=== PATIENT | female | born 1935 | race Caucasian/White ===

== ENCOUNTER 2023-02-26 16:34 | Inpatient (IN) ==
[2023-02-26] MEDS ORDERED: ONDANSETRON 4 MG/2 ML VIAL IV PRN (18:50)
[2023-02-26] MEDS ORDERED: hydrALAZINE 20 MG/ML VIAL IV PRN (18:50)
[2023-02-26] MEDS ORDERED: HYDROmorphone 0.5 MG/0.5 ML SYRINGE IV PRN (18:50)
[2023-02-26] MEDS ORDERED: KETOROLAC 30 MG/ML VIAL IV PRN (18:50)
[2023-02-26] MEDS ORDERED: IPRATROPIUM/ALBUTEROL 3 ML AMPUL.NEB NEB PRN (18:50)
[2023-02-26] MEDS: oxyCODONE/APAP 5/325MG TABLET PO PRN (21:03)
[2023-02-26] MEDS: SENNOSIDES 1 TABLET PO SCH (21:03)
[2023-02-26] MEDS: DOCUSATE SODIUM 100 MG CAPSULE PO SCH (21:04)
[2023-02-26] MEDS: 0.9 % SODIUM CHLORIDE 10 ML SYRINGE IV SCH (22:10)
[2023-02-26] MEDS: 0.9 % SODIUM CHLORIDE 1,000 ML IV SCH (23:08)
[2023-02-27] MEDS: oxyCODONE/APAP 5/325MG TABLET PO PRN (03:04)
[2023-02-27] MEDS: 0.9 % SODIUM CHLORIDE 1,000 ML IV SCH ×3 (05:23→17:15)
[2023-02-27] MEDS: 0.9 % SODIUM CHLORIDE 10 ML SYRINGE IV SCH ×2 (05:23→14:00)
[2023-02-27 06:55] LABS: Basophils # (Auto) 0.05 K/mcL (0.00-0.30); Basophils % (Auto) 0.5 % (0.0-2.0); Eosinophils # (Auto) 0.04 K/mcL (0.00-0.70); Eosinophils % (Auto) 0.4 % (0.0-7.0); Hematocrit 38.5 % (34.1-44.9); Hemoglobin 12.4 g/dL (11.2-15.7); Lymphocytes # (Auto) 1.28 K/mcL (1.50-4.80); Lymphocytes % (Auto) 13.8 % (15.5-49.0); Mean Cell Volume 93.9 fL (80.0-100.0); Mean Corpuscular HGB Conc 32.2 g/dL (31.0-36.0); Mean Platelet Volume 9.4 fL (8.8-12.5); Monocytes # (Auto) 0.78 K/mcL (0.10-0.90); Monocytes % (Auto) 8.4 % (1.0-12.0); Neutrophils % (Auto) 76.7 % (38.0-78.0); Platelet Count 235 K/mcL (140-440); Red Cell Distribution Width 13.8 % (11.5-14.5); WBC 9.3 K/mcL (4.5-11.0)
[2023-02-27 07:11] LABS: Blood Urea Nitrogen 17 mg/dL (8-23); Calcium 9.6 mg/dL (8.6-10.4); Carbon Dioxide 24 mmol/L (22-30); Chloride 104 mmol/L (96-108); Glomerular Filtration Rate 82; Glucose 131 mg/dL (70-105)
[2023-02-27] MEDS: DOCUSATE SODIUM 100 MG CAPSULE PO SCH ×2 (08:41→21:10)
[2023-02-27] MEDS ORDERED: ceFAZolin 2 GM in DEXTROSE 5% IN WATER 50 ML IV SCH ×2 (12:15→15:15)
[2023-02-27] MEDS ORDERED: KETAMINE 50 MG/ML Syringe IV ONE (12:34)
[2023-02-27] MEDS ORDERED: ONDANSETRON 4 MG/2 ML VIAL ONE (12:34)
[2023-02-27] MEDS ORDERED: LIDOCAINE 2% PF 5 ML VIAL ONE (12:34)
[2023-02-27] MEDS ORDERED: DEXAMETHASONE 10 MG/ML VIAL ONE (12:34)
[2023-02-27] MEDS ORDERED: MAGNESIUM SULFATE 2 GM/50 ML BAG IV ONE (12:35)
[2023-02-27] MEDS ORDERED: PROPOFOL 200 MG/20 ML VIAL IV ONE (12:35)
[2023-02-27] MEDS ORDERED: KETOROLAC 15 MG/ML VIAL IV PRN (15:10)
[2023-02-27] MEDS ORDERED: POLYETHYLENE GLYCOL 3350 17 GM PACKET PO PRN (15:10)
[2023-02-27] MEDS ORDERED: FLEETS ADULT 1 DOSE ENEMA PR PRN (15:10)
[2023-02-27] MEDS ORDERED: BENZOCAINE/MENTHOL 1 LOZENGE PO PRN (15:10)
[2023-02-27] MEDS ORDERED: morphine 4 MG/ML VIAL IV PRN (15:10)
[2023-02-27] MEDS ORDERED: BISACODYL 10 MG SUPP.RECT PR PRN (15:10)
[2023-02-27] MEDS ORDERED: TRANEXAMIC ACID 1,000 MG/10 ML VIAL IV SCH (15:10)
[2023-02-27] MEDS ORDERED: MEPERIDINE 25 MG/ML VIAL IV PRN (15:11)
[2023-02-27] MEDS ORDERED: LACTATED RINGERS 250 ML IV PRN (15:11)
[2023-02-27] MEDS ORDERED: ONDANSETRON 4 MG/2 ML VIAL IV PRN (15:11)
[2023-02-27] MEDS ORDERED: NALOXONE HCL 0.4 MG/ML VIAL IV PRN (15:11)
[2023-02-27] MEDS ORDERED: METHOCARBAMOL 1,000 MG/10 ML VIAL IV PRN (15:11)
[2023-02-27] MEDS ORDERED: diphenhydrAMINE 50 MG/ML VIAL IV PRN (15:11)
[2023-02-27] MEDS ORDERED: PROMETHAZINE 25 MG/ML VIAL IV PRN (15:11)
[2023-02-27] MEDS ORDERED: IPRATROPIUM/ALBUTEROL 3 ML AMPUL.NEB NEB PRN (15:11)
[2023-02-27] MEDS ORDERED: LACTATED RINGERS 1,000 ML IV SCH (15:15)
[2023-02-27] MEDS: fentaNYL 100 MCG/2 ML VIAL IV PRN ×2 (16:16→16:21)
[2023-02-27] MEDS: MEMANTINE 10 MG TABLET PO SCH (21:09)
[2023-02-27] MEDS: ASPIRIN 325 MG ENTERIC COATED TABLET PO SCH (21:10)
[2023-02-27] MEDS: ACETAMINOPHEN 325 MG TABLET PO PRN (21:10)
[2023-02-27] MEDS: SENNOSIDES 1 TABLET PO SCH (21:10)
[2023-02-27] MEDS: MONTELUKAST 10 MG TABLET PO SCH (21:10)
[2023-02-27] MEDS: ceFAZolin 1 GM VIAL IV SCH (21:40)
[2023-02-28] MEDS: 0.9 % SODIUM CHLORIDE 1,000 ML IV SCH ×2 (01:13→06:48)
[2023-02-28] MEDS: 0.9 % SODIUM CHLORIDE 10 ML SYRINGE IV SCH ×4 (01:44→21:10)
[2023-02-28] MEDS: ACETAMINOPHEN 325 MG TABLET PO PRN (03:33)
[2023-02-28] MEDS: ceFAZolin 1 GM VIAL IV SCH (06:37)
[2023-02-28 06:44] LABS: Basophils # (Auto) 0.01 K/mcL (0.00-0.30); Basophils % (Auto) 0.1 % (0.0-2.0); Eosinophils # (Auto) 0 K/mcL (0.00-0.70); Eosinophils % (Auto) 0 % (0.0-7.0); Hematocrit 33.7 % (34.1-44.9); Hemoglobin 10.9 g/dL (11.2-15.7); Lymphocytes # (Auto) 0.87 K/mcL (1.50-4.80); Mean Cell Volume 93.9 fL (80.0-100.0); Mean Corpuscular HGB Conc 32.3 g/dL (31.0-36.0); Mean Platelet Volume 9.3 fL (8.8-12.5); Monocytes # (Auto) 0.78 K/mcL (0.10-0.90); Monocytes % (Auto) 8.1 % (1.0-12.0); Neutrophils % (Auto) 82.7 % (38.0-78.0); Platelet Count 240 K/mcL (140-440); RBC 3.59 M/mcL (3.59-5.38); WBC 9.7 K/mcL (4.5-11.0)
[2023-02-28] MEDS: OMEPRAZOLE 20 MG CAPSULE PO SCH (06:59)
[2023-02-28] MEDS: LEVOTHYROXINE 50 MCG TABLET PO SCH (06:59)
[2023-02-28 07:05] LABS: ALT/SGPT 15 U/L (<40); AST/SGOT 45 U/L (<32); Albumin 3.2 gm/dL (3.2-5.2); Albumin/Globulin Ratio 1.3 (1.0-2.3); Alkaline Phosphatase 72 U/L (39-117); Bilirubin,Direct < 0.2 mg/dL (0-0.3); Bilirubin,Total 0.4 mg/dL (0.1-1.0); Blood Urea Nitrogen 21 mg/dL (8-23); Calcium 9.5 mg/dL (8.6-10.4); Carbon Dioxide 24 mmol/L (22-30); Chloride 104 mmol/L (96-108); Globulin 2.5 gm/dL (2.2-3.7); Glomerular Filtration Rate 78; Glucose 115 mg/dL (70-105); Lactate Dehydrogenase 247 U/L (135-225); Phosphorous 2.7 mg/dL (2.5-4.5); Triglycerides 104 mg/dL (<150)
[2023-02-28] MEDS ORDERED: hydrALAZINE 20 MG/ML VIAL IV PRN (08:43)
[2023-02-28] MEDS ORDERED: ENALAPRILAT 1.25 MG/ML VIAL IV PRN (08:43)
[2023-02-28] MEDS: oxyCODONE/APAP 5/325MG TABLET PO PRN ×2 (09:13→21:08)
[2023-02-28] MEDS: ASPIRIN 325 MG ENTERIC COATED TABLET PO SCH ×2 (09:13→21:09)
[2023-02-28] MEDS: MEMANTINE 10 MG TABLET PO SCH ×2 (09:13→21:08)
[2023-02-28] MEDS: OXYBUTYNIN CHLORIDE 5 MG TABLET PO SCH (09:14)
[2023-02-28] MEDS: DOCUSATE SODIUM 100 MG CAPSULE PO SCH ×2 (09:14→21:09)
[2023-02-28] MEDS: SENNOSIDES 1 TABLET PO SCH (21:09)
[2023-02-28] MEDS: MONTELUKAST 10 MG TABLET PO SCH (21:09)
[2023-03-01] MEDS: 0.9 % SODIUM CHLORIDE 10 ML SYRINGE IV SCH (06:42)
[2023-03-01] MEDS: OMEPRAZOLE 20 MG CAPSULE PO SCH (08:02)
[2023-03-01] MEDS: MEMANTINE 10 MG TABLET PO SCH (08:02)
[2023-03-01] MEDS: OXYBUTYNIN CHLORIDE 5 MG TABLET PO SCH (08:02)
[2023-03-01] MEDS: oxyCODONE/APAP 5/325MG TABLET PO PRN (08:02)
[2023-03-01] MEDS: LEVOTHYROXINE 50 MCG TABLET PO SCH (08:02)
[2023-03-01] MEDS: ASPIRIN 325 MG ENTERIC COATED TABLET PO SCH (08:02)
[2023-03-01] MEDS: DOCUSATE SODIUM 100 MG CAPSULE PO SCH (08:03)
[2023-03-01] MEDS ORDERED: amLODIPine 5 MG TABLET PO SCH (10:30)
== END 2023-03-01 13:02 | DRG 522 ==
LOC: MEDSUR 18:31
PROVIDERS: ADMIT Internal Medicine; ATTEND Internal Medicine
PROC: HEMIHIP (2023-02-27 14:00)